=== PATIENT | female | born 1950 | race Caucasian/White ===

== ENCOUNTER 2022-03-22 08:55 | Day surgery (SDC) | payer MEDICARE, OTHER ==
[~2022-03-22] VITALS: Ht 165.1 cm; Wt 68.5 kg
[2022-03-22 10:20] VITALS: BP 115/66; PULSE 57; TEMP 96.9
[2022-03-22 10:35] VITALS: BP 112/65; PULSE 57
[2022-03-22 10:50] VITALS: BP 138/79; PULSE 59
--- NOTE | 2022-03-22 10:57 | NUR ---
1020 RETURNS TO ROOM 2 FROM PROCEDURE ROOM. AWAKE, ALERT. DENIES NAUSEA, ABD PAIN OR DYSPHAGIA. IN ROOM. 1035 TOLERATES PO JUICE AND MUFFIN WITHOUT NAUSEA. SWALLOWS WITHOUT DIFFICULTY. 1045 DISCHARGE INSTRUCTIONS REVIEWED WITH PATIENT AND VERBALIZING UNDERSTANDING. COPY OF INSTRUCTIONS PROVIDED TO PATIENT. 1050 IV DC'D WITH CATHETER INTACT. 1055 PATIENT DRESSES SELF
[2022-03-22 12:33] VITALS: BP 145/73; PULSE 64; TEMP 97.1
[2022-03-22] MEDS ORDERED: ZOCOR 20MG20 MG PO (12:42)
[2022-03-22] MEDS ORDERED: PROTONIX 40MG T40 MG PO (12:43)
[2022-03-22] MEDS ORDERED: CALCIUM W/D (12:45)
[2022-03-22] MEDS ORDERED: CARAFATE 1GM1 G (12:46)
[2022-03-22] MEDS ORDERED: CARAFATE 1GM1 G PO (12:47)
== END 2022-03-22 10:57 | disposition home or self-care (01) ==
LOC: SDCO 08:55
DX: K21.9 Gastro-esophageal reflux disease without esophagitis (principal); Z79.82 Long term (current) use of aspirin; Z79.51 Long term (current) use of inhaled steroids; R63.4 Abnormal weight loss; Z68.24 Body mass index [BMI] 24.0-24.9, adult
CPT/HCPCS: J2704; J7120